=== PATIENT | male | born 1960 | race Caucasian/White ===

== ENCOUNTER 2017-12-15 23:28 | Emergency (ER) | payer OTHER ==
[~2017-12-15] VITALS: Ht 193 cm; Wt 177.8 kg
[2017-12-15 23:36] VITALS: BP 154/92
[2017-12-16 00:07] LABS: HEMATOCRIT 42.5 % (38.0-50.0); HEMOGLOBIN 14.1 G/DL (12.5-16.6); MCH 29.7 PG (29.0-34.0); MCHC 33.2 G/DL (30.0-36.0); MCV 89.5 FL (86-99); PLATELET COUNT 193 K/uL (156-360); RBC DIS.WIDTH-CV 12.9 % (11.8-14.6); RBC DIS.WIDTH-SD 42.5 % (39-53); RED BLOOD COUNT 4.75 M/uL (4.00-5.50); WHITE BLOOD COUNT 6.8 K/uL (4.1-10.2)
[2017-12-16 00:16] LABS: CHLORIDE 106 mEq/L (99-109); SODIUM 143 mEq/L (136-147)
[2017-12-16 00:17] LABS: GLUCOSE 124 mg/dL (70-99)
[2017-12-16 00:21] LABS: CREATININE 1.4 mg/dL (0.6-1.3); GFR ESTIMATE (CALCULATED) 56 mL/min/ (58.99-99999)
[2017-12-16 00:22] LABS: UREA NITROGEN (BUN) 21 mg/dL (9-23)
[2017-12-16 00:27] LABS: TROP-I INTERPRETATION NEGATIVE; TROPONIN-I < 0.01 ng/mL (0.0-0.30)
[2017-12-16 00:48] LABS: LIPASE 27 U/L (1.0-51.0)
== END 2017-12-16 02:14 | disposition left against medical advice (07) ==
LOC: EME 23:28
DX: R07.9 Chest pain, unspecified (principal); R06.02 Shortness of breath; M79.606 Pain in leg, unspecified; Z53.21 Procedure and treatment not carried out due to patient leaving prior to being seen by health care provider
CPT/HCPCS: 71046; 80048; 83690; 84484; 85027; 93005